=== PATIENT | female | born 1960 | race Caucasian/White ===

== ENCOUNTER 2022-11-26 07:36 | Outpatient (CLI) | payer OTHER, MEDICAID | END 2022-11-26 07:37 | disposition home or self-care (01) | LOC: CSHMRI 07:36 | PROVIDERS: ATTEND Neurological Surgery | DX: M48.061 Spinal stenosis, lumbar region without neurogenic claudication (principal); M25.551 Pain in right hip; M25.552 Pain in left hip; M47.816 Spondylosis without myelopathy or radiculopathy, lumbar region; Z98.890 Other specified postprocedural states | CPT/HCPCS: 72148; 73521 ==